=== PATIENT | female | born 1955 | race African-American/Black ===

== ENCOUNTER 2021-03-13 11:23 | Inpatient (IN) | payer OTHER ==
[2021-03-13] MEDS ORDERED: BISMUTH SUBSALICYLATE 262 MG/15 ML BTL PO PRN (13:50)
[2021-03-13] MEDS ORDERED: ACETAMINOPHEN 325 MG TABLET (FP) PO PRN ×2 (13:50)
[2021-03-13] MEDS ORDERED: ONDANSETRON *ODT* 4 MG TABLET SL PRN (13:50)
[2021-03-13] MEDS ORDERED: MENTHOL/PHENOL 1 EACH UD MM PRN (13:50)
[2021-03-13] MEDS ORDERED: IBUPROFEN 400 MG TABLET (FP) PO PRN (13:50)
[2021-03-13] MEDS ORDERED: MAG HYDROX/AL HYDROX/SIMETH 30 ML UNIT-DOSE CUP PO PRN (13:50)
[2021-03-13] MEDS ORDERED: methaDONE HCL 10 MG TABLET (FOR DETOX USE ONLY) PO ONE (13:50)
[2021-03-13] MEDS ORDERED: cloNIDine HCL 0.1 MG TABLET PO PRN (13:50)
[2021-03-13] MEDS ORDERED: MAGNESIUM CITRATE 300 ML BOTTLE PO PRN (13:50)
[2021-03-13 14:48] LABS: HEMATOCRIT 41.7 % (32.4-45.2); HEMOGLOBIN 13.3 GM/dL (10.7-15.3); MCH 27.7 pg (25.7-33.7); MCHC 31.9 g/dl (32.0-36.0); MEAN CELL VOLUME 86.7 fl (80-96); MEAN PLT VOLUME 6.9 fl (7.5-11.1); PLATELET COUNT 341 10^3/uL (134-434); RBC 4.81 M/mm3 (3.60-5.2); RDW 16.2 % (11.6-15.6); WHITE BLOOD COUNT 11.6 K/mm3 (4.0-10.0)
[2021-03-13 14:55] LABS: CALCIUM 8.9 mg/dL (8.5-10.1)
[2021-03-13 14:56] LABS: ALBUMIN 3.8 g/dl (3.4-5.0); BLOOD UREA NITROGEN 13.7 mg/dL (7-18)
[2021-03-13 14:59] LABS: CREATININE 0.9 mg/dL (0.55-1.3)
[2021-03-13 15:00] LABS: BILIRUBIN,TOTAL 0.7 mg/dL (0.2-1); TOT PROT 8.5 g/dl (6.4-8.2)
[2021-03-13] MEDS ORDERED: methaDONE HCL 10 MG TABLET (FOR DETOX USE ONLY) ONE (15:26)
[2021-03-13 15:47] VITALS: BMI 30.4
[2021-03-13] MEDS: hydrOXYzine PAMOATE 25 MG CAPSULE (FP) PO SCH ×3 (18:45→23:46)
[2021-03-13] MEDS: MELATONIN 5 MG TABLETS PO SCH (22:11)
[2021-03-13] MEDS: THIAMINE HCL 100 MG TABLET (FP) PO SCH (22:11)
[2021-03-14] MEDS: hydrOXYzine PAMOATE 25 MG CAPSULE (FP) PO SCH (05:22)
[2021-03-14] MEDS ORDERED: methaDONE HCL 10 MG TABLET (FOR DETOX USE ONLY) ONE (09:45)
[2021-03-14] MEDS ORDERED: PATIENT'S OWN MEDICATION (NON-FORMULARY) (Losartan/Hydrochlorothiazide [Losartan-Hctz 100- PO SCH (10:00)
[2021-03-14] MEDS: PRENATAL VITAMINS W/ FOLIC ACID TABLET (FP) PO SCH (10:27)
[2021-03-14] MEDS: FAMOTIDINE 20 MG TABLET PO SCH ×2 (11:57→22:09)
[2021-03-14] MEDS ORDERED: MASKS NR ONE ×2 (12:16→17:28)
[2021-03-14] MEDS: diazePAM 5 MG TABLET PO PRN (13:06)
[2021-03-14] MEDS ORDERED: LOSARTAN POTASSIUM 50 MG TABLET PO ONE (14:37)
[2021-03-14] MEDS: LOSARTAN POTASSIUM 50 MG TABLET PO SCH (15:23)
[2021-03-14] MEDS: HYDROCHLOROTHIAZIDE 25 MG TABLET (FP) PO SCH (15:24)
[2021-03-14] MEDS: hydrOXYzine PAMOATE 25 MG CAPSULE (FP) PO PRN (18:54)
[2021-03-14] MEDS: MELATONIN 5 MG TABLETS PO SCH (22:09)
[2021-03-14] MEDS: THIAMINE HCL 100 MG TABLET (FP) PO SCH (22:09)
[2021-03-15] MEDS: diazePAM 5 MG TABLET PO PRN ×4 (00:57→19:02)
[2021-03-15] MEDS: METHOCARBAMOL 500 MG TABLET PO PRN ×2 (06:21→19:02)
[2021-03-15] MEDS ORDERED: methaDONE HCL 10 MG TABLET (FOR DETOX USE ONLY) PO ONE (10:00)
[2021-03-15] MEDS: LOSARTAN POTASSIUM 50 MG TABLET PO SCH (10:34)
[2021-03-15] MEDS: HYDROCHLOROTHIAZIDE 25 MG TABLET (FP) PO SCH (10:34)
[2021-03-15] MEDS: hydrOXYzine PAMOATE 25 MG CAPSULE (FP) PO PRN (10:34)
[2021-03-15] MEDS: FAMOTIDINE 20 MG TABLET PO SCH ×2 (10:35→21:59)
[2021-03-15] MEDS: PRENATAL VITAMINS W/ FOLIC ACID TABLET (FP) PO SCH (10:35)
[2021-03-15] MEDS: MELATONIN 5 MG TABLETS PO SCH (21:59)
[2021-03-15] MEDS: THIAMINE HCL 100 MG TABLET (FP) PO SCH (21:59)
[2021-03-16] MEDS: diazePAM 5 MG TABLET PO PRN ×2 (03:18→11:59)
[2021-03-16] MEDS: hydrOXYzine PAMOATE 25 MG CAPSULE (FP) PO PRN ×2 (07:15→21:54)
[2021-03-16] MEDS: METHOCARBAMOL 500 MG TABLET PO PRN (07:15)
[2021-03-16] MEDS ORDERED: methaDONE HCL 10 MG TABLET (FOR DETOX USE ONLY) ONE (09:10)
[2021-03-16] MEDS: PRENATAL VITAMINS W/ FOLIC ACID TABLET (FP) PO SCH (10:03)
[2021-03-16] MEDS: FAMOTIDINE 20 MG TABLET PO SCH ×2 (10:04→21:53)
[2021-03-16] MEDS: HYDROCHLOROTHIAZIDE 25 MG TABLET (FP) PO SCH (10:04)
[2021-03-16] MEDS: LOSARTAN POTASSIUM 50 MG TABLET PO SCH (10:05)
[2021-03-16] MEDS: THIAMINE HCL 100 MG TABLET (FP) PO SCH (21:53)
[2021-03-16] MEDS: traZODone HCL 100 MG TABLET (FP) PO SCH (21:53)
[2021-03-17] MEDS: hydrOXYzine PAMOATE 25 MG CAPSULE (FP) PO PRN ×2 (06:14→17:55)
[2021-03-17] MEDS: MAGNESIUM HYDROX 2400MG/30ML ORAL SUSPENSION 30 ML CUP PO PRN ×2 (06:21→17:57)
[2021-03-17] MEDS ORDERED: methaDONE HCL 10 MG TABLET (FOR DETOX USE ONLY) PO ONE (10:00)
[2021-03-17] MEDS: PRENATAL VITAMINS W/ FOLIC ACID TABLET (FP) PO SCH (10:25)
[2021-03-17] MEDS: FAMOTIDINE 20 MG TABLET PO SCH ×2 (10:26→22:26)
[2021-03-17] MEDS: LOSARTAN POTASSIUM 50 MG TABLET PO SCH (10:26)
[2021-03-17] MEDS: HYDROCHLOROTHIAZIDE 25 MG TABLET (FP) PO SCH (10:27)
[2021-03-17] MEDS: THIAMINE HCL 100 MG TABLET (FP) PO SCH (22:26)
[2021-03-17] MEDS: traZODone HCL 100 MG TABLET (FP) PO SCH (22:26)
[2021-03-18] MEDS: hydrOXYzine PAMOATE 25 MG CAPSULE (FP) PO PRN (04:20)
[2021-03-18] MEDS: METHOCARBAMOL 500 MG TABLET PO PRN (04:20)
[2021-03-18 09:18] VITALS: BP 154/90; PULSE 99; TEMP 98.4
[2021-03-18] MEDS: HYDROCHLOROTHIAZIDE 25 MG TABLET (FP) PO SCH (10:17)
[2021-03-18] MEDS: FAMOTIDINE 20 MG TABLET PO SCH (10:17)
[2021-03-18] MEDS: PRENATAL VITAMINS W/ FOLIC ACID TABLET (FP) PO SCH (10:17)
[2021-03-18] MEDS: LOSARTAN POTASSIUM 50 MG TABLET PO SCH (10:17)
== END 2021-03-18 10:41 | disposition home or self-care (01) | DRG 897 ==
LOC: YASAS 11:23 → Y6N 16:04
PROVIDERS: ADMIT Allergy & Immunology; ATTEND Allergy & Immunology
PROC: HZ2ZZZZ Detoxification Services for Substance Abuse Treatment (ICD-10-PCS; principal; 2021-03-13)
DX: F11.23 Opioid dependence with withdrawal (principal); F10.10 Alcohol abuse, uncomplicated; F12.20 Cannabis dependence, uncomplicated; F19.24 Other psychoactive substance dependence with psychoactive substance-induced mood disorder; F32.9 Major depressive disorder, single episode, unspecified; I10 Essential (primary) hypertension; K21.9 Gastro-esophageal reflux disease without esophagitis; R76.11 Nonspecific reaction to tuberculin skin test without active tuberculosis; Z86.11 Personal history of tuberculosis
CPT/HCPCS: 36415; 71046-TC-FY; 80053; 82962; 85027; 86593; 86780; 93005; 93010; C9803; J0735; U0003; U0005